=== PATIENT | female | born 1950 | race Hispanic/Latino ===

== ENCOUNTER → 2017-11-30 | Outpatient (CLI) | payer OTHER ==
[2017-11-30 15:40] LABS: BASOPHILS # (AUTO) 0.1 (0.0-0.1); BASOPHILS % 0.4 % (0.0-1.0); EOSINOPHILS # (AUTO) 0.4 (0.0-0.4); EOSINOPHILS % 3.4 % (0.0-6.0); HEMATOCRIT 38.9 % (34.2-44.1); HEMOGLOBIN 12.8 g/dL (12.0-16.0); LYMPHOCYTES # (AUTO) 4.3 (1.0-3.2); LYMPHOCYTES % 35.6 % (18.0-39.1); MEAN CORPUSCULAR HEMOGLOBIN 27.8 pg (28-32); MEAN CORPUSCULAR HGB CONC 32.9 g/dL (31-35); MEAN CORPUSCULAR VOLUME 84.6 fL (81-99); MONOCYTES # (AUTO) 0.6 (0.2-0.8); MONOCYTES % 5.1 % (4.4-11.3); NEUTROPHILS # (AUTO) 6.6 (2.1-6.9); NEUTROPHILS % 55.1 % (38.7-80.0); PLATELET COUNT 352 x10e3/uL (140-360); RED CELL DISTRIBUTION WIDTH 13.2 % (11.7-14.4)
== END ==
LOC: RESP 13:11
PROVIDERS: ATTEND Internal Medicine
DX: R06.02 Shortness of breath (principal)
CPT/HCPCS: 36415; 82785; 85025; 86001; 86003; 94060; 94727; 94729

== ENCOUNTER → 2017-12-15 | Outpatient (CLI) | payer OTHER ==
--- NOTE | 2017-12-15 10:23 | Diagnostic Imaging Report ---
PROCEDURE:CT CHEST WITHOUT CONTRAST COMPARISON:None. INDICATIONS:Abnormal function tests. TECHNIQUE: Routine protocol Volumetric CT chest. No intravenous or enteric contrast. Multiplanar reformatted images. DLP: 457.56 mGy*cm FINDINGS: Lungs: Normal Pulmonary nodules: Left upper lobe sub-4 mm (image 33, series 3). Right middle lobe sub-4 mm (image 62) Airways: Bilateral lower lobe predominant cylindrical bronchiectasis with mild bronchial wall thickening. No filling defect. Pleura: Normal Lymph nodes: 1 cm short axis paratracheal (image 40, series 2). Otherwise, normal Pulmonary arteries: Normal caliber Thoracic aorta and great vessels: Normal caliber. Trace aortic arch atherosclerosis. Heart and pericardium: Normal size. Mild nodular pericardial thickening (see image 80, series 2) without effusion. A moderate coronary artery calcification. Subdiaphragmatic organs: Multiple calcified granulomas in the liver and spleen. Skeleton: Intact. Mild thoracic degenerative disc disease. Soft tissues: Normal CONCLUSION: 1. Mild bilateral lower lobe predominant cylindrical bronchiectasis. Mild associated bronchial wall thickening. 2. Evidence of remote granulomatous disease. 3. Moderate coronary artery disease. Mild pericardial nodularity without effusion of indeterminate clinical significance. 4. Sub-6 mm pulmonary nodules. Per Janet Society criteria, followup CT chest optional in 1 year if the patient is high risk. No routine followup for a low risk patient. Dictated by: Jason Khan M.D. on 12/15/2017 at 10:32 Electronically approved by: Jason Khan M.D. on 12/15/2017 at 10:32
== END ==
LOC: CT 09:35
PROVIDERS: ATTEND Internal Medicine
DX: R94.2 Abnormal results of pulmonary function studies (principal)
CPT/HCPCS: 71250

== ENCOUNTER → 2018-08-22 | Outpatient (CLI) | payer OTHER | LOC: MAMMO 10:12 | PROVIDERS: ATTEND Internal Medicine | DX: Z12.31 Encounter for screening mammogram for malignant neoplasm of breast (principal) | CPT/HCPCS: 77067 ==

== ENCOUNTER → 2020-09-30 | Outpatient (CLI) | payer MEDICARE | LOC: MAMMO 10:09 | PROVIDERS: ATTEND Internal Medicine | DX: Z12.31 Encounter for screening mammogram for malignant neoplasm of breast (principal) | CPT/HCPCS: 36415; 77067; 82948 ==

== ENCOUNTER → 2021-12-16 | Outpatient (CLI) | payer MEDICARE | LOC: MAMMO 11:09 | PROVIDERS: ATTEND Internal Medicine | DX: Z12.31 Encounter for screening mammogram for malignant neoplasm of breast (principal) | CPT/HCPCS: 77067 ==

== ENCOUNTER → 2022-12-24 | Outpatient (CLI) | payer MEDICARE | LOC: RAD 09:55 | PROVIDERS: ATTEND Internal Medicine | DX: R06.09 Other forms of dyspnea (principal) | CPT/HCPCS: 71046 ==